=== PATIENT | female | born 1965 | race Caucasian/White ===

== ENCOUNTER → 2016-09-28 | Outpatient (CLI) | payer BC, OTHER ==
[2016-09-28 07:39] LABS: BUN/CREATININE RATIO 16 (0-10)
== END ==
LOC: LAB 06:56
PROVIDERS: Physician Assistant
DX: E78.5 Hyperlipidemia, unspecified (principal); E55.9 Vitamin D deficiency, unspecified
CPT/HCPCS: 36415; 80053; 80061; 82652

== ENCOUNTER 2020-08-18 16:56 | Emergency (ER) | payer BC, OTHER ==
[~2020-08-18 16:56] MED LIST: CEFUROXIME500 MG PO; CYCLOBENZAPRINE10 MG PO; MEDROL4 MG PO; NORCO 5-325 TA1 EACH PO; VIBRAMYCIN100 MG PO; ZYRTEC10 MG PO
[2020-08-18] MEDS ORDERED: PROAIR DIGIHAL90 MCG INH (21:25)
== END 2020-08-18 22:20 | disposition home or self-care (01) ==
LOC: ER1 16:56
DX: J06.9 Acute upper respiratory infection, unspecified (principal); I10 Essential (primary) hypertension; Z20.822 Contact with and (suspected) exposure to COVID-19
CPT/HCPCS: 71045; 87081; 87880; 99285; U0002

== ENCOUNTER → 2020-08-21 | Outpatient (CLI) | payer BC, OTHER ==
[~2020-08-21] MED LIST changes: +PROAIR DIGIHAL90 MCG INH
== END ==
LOC: RAD 16:02
DX: R05 Cough (principal); J98.11 Atelectasis
CPT/HCPCS: 71046

== ENCOUNTER → 2020-12-14 | Outpatient (CLI) | payer BC, OTHER | LOC: HEART 5 11-10 10:30 | DX: I11.9 Hypertensive heart disease without heart failure (principal); R06.02 Shortness of breath; I07.1 Rheumatic tricuspid insufficiency; R93.1 Abnormal findings on diagnostic imaging of heart and coronary circulation | CPT/HCPCS: 93306 ==

== ENCOUNTER 2021-07-05 17:06 | Emergency (ER) | payer BC, OTHER ==
[2021-07-05 19:52] LABS: HEMOGLOBIN 15.9 gm/dl (12.3-15.3); RED BLOOD COUNT 4.81 M/UL (4.00-5.10); WHITE BLOOD COUNT 7.1 K/UL (4.5-11.0)
[2021-07-05 20:13] LABS: BUN/CREATININE RATIO 16 (0-10)
== END 2021-07-06 00:16 | disposition home or self-care (01) ==
LOC: ER1 17:06
PROVIDERS: Physician Assistant
DX: R07.89 Other chest pain (principal); I10 Essential (primary) hypertension; Z88.8 Allergy status to other drugs, medicaments and biological substances
CPT/HCPCS: 71045; 80053; 82550; 82553; 83874; 83880; 84484; 85025; 85379; 85610; 85730; 93005; 99285; Q9967

== ENCOUNTER → 2022-01-06 | Outpatient (CLI) | payer BC, OTHER ==
[2022-01-06 09:41] LABS: HEMOGLOBIN 16.1 gm/dl (12.3-15.3); RED BLOOD COUNT 5.01 M/UL (4.00-5.10); WHITE BLOOD COUNT 4.4 K/UL (4.5-11.0)
[2022-01-06 10:05] LABS: BUN/CREATININE RATIO 27 (0-10)
[2022-01-07 11:14] LABS: RHEUMATOID ARTHRITIS FACTOR <10.0 IU/mL (<14.0)
== END ==
LOC: LAB 09:20
PROVIDERS: Nurse Practitioner Family
DX: E78.5 Hyperlipidemia, unspecified (principal); I10 Essential (primary) hypertension; R00.2 Palpitations; I47.1 Supraventricular tachycardia; R06.02 Shortness of breath; R53.83 Other fatigue; R40.0 Somnolence; M25.50 Pain in unspecified joint
CPT/HCPCS: 36415; 80053; 80061; 83036; 84439; 84443; 84481; 85025; 86038; 86431

== ENCOUNTER → 2022-04-21 | Outpatient (CLI) | payer BC, OTHER | LOC: KOH-I 09:47 | DX: M79.671 Pain in right foot (principal); M79.672 Pain in left foot | CPT/HCPCS: 73630 ==